=== PATIENT | female | born 1970 | race Caucasian/White ===

== ENCOUNTER → 2019-03-03 | Outpatient (CLI) | payer OTHER | LOC: MAMMO 13:23 | DX: Z12.31 Encounter for screening mammogram for malignant neoplasm of breast (principal) ==

== ENCOUNTER → 2024-04-27 | Outpatient (CLI) | payer OTHER | LOC: MAMMO 10:25 | DX: Z12.31 Encounter for screening mammogram for malignant neoplasm of breast (principal) ==